=== PATIENT | male | born 1980 | race Hispanic/Latino ===

== ENCOUNTER 2024-06-28 09:50 | Emergency (ER) | payer SELFPAY ==
[2024-06-28] MEDS ORDERED: Lidocaine 1% PF 5 ML VIAL ONE (10:10)
[2024-06-28] MEDS ORDERED: Lidocaine 1%/Epinephrine 1:100K 10 ML VIAL ONE (10:30)
== END 2024-06-28 11:04 | disposition home or self-care (01) ==
LOC: BURERS 09:50
DX: S01.01XA Laceration without foreign body of scalp, initial encounter (principal); W22.8XXA Striking against or struck by other objects, initial encounter
CPT/HCPCS: 12002; 99282

== ENCOUNTER 2024-07-05 13:17 | Emergency (ER) | payer SELFPAY | END 2024-07-05 13:40 | disposition home or self-care (01) | LOC: BURERS 13:17 | DX: S01.01XD Laceration without foreign body of scalp, subsequent encounter (principal); R03.0 Elevated blood-pressure reading, without diagnosis of hypertension; X58.XXXD Exposure to other specified factors, subsequent encounter ==